=== PATIENT | male | born 1955 | race Caucasian/White ===

== ENCOUNTER 2021-07-04 06:11 | Day surgery (SDC) | payer OTHER ==
[~2021-07-04] VITALS: Ht 172.7 cm; Wt 78.9 kg
--- NOTE | ~2021-07-04 | O ---
[facility] [place] [address] OPERATIVE REPORT Name: FRANCISCO KITCHEN JR Room #: DEP [facility].#: [id number] Admission: 07/04/21 Attend Phys: Emigdio Tafoya MD Discharge: 07/04/21 Date of : 55 Report #: [id number] THIS REPORT FOR: cc: FAM - Family physician unknown FAM - Family physician unknown Emigdio Tafoya MD ~ DATE OF SERVICE: 07/04/2021 SERVICE: Orthopedics. FACILITY: [facility]. SURGEON: Emigdio Tafoya MD DISPUTE COORDINATOR: Elba Jang NP PREOPERATIVE DIAGNOSES: 1. Right elbow infected hardware. 2. Retained orthopedic implant, right elbow olecranon. 3. Status post open reduction internal fixation of right olecranon fracture with radial head replacement in the late . POSTOPERATIVE DIAGNOSES: 1. Right elbow infected hardware. 2. Retained orthopedic implant, right elbow olecranon. 3. Status post open reduction internal fixation of right olecranon fracture with radial head replacement in the late .. PROCEDURES: 1. Hardware removal, right olecranon. 2. Incision, irrigation and debridement down to bone, right elbow. COMPLICATIONS: None. DRAINS: None. SPECIMENS: 1. Tissue culture. 2. Exudate culture. FINDINGS: 1. Four of 7 screws removed in total, 3 head break off with the shaft portion retained within the bone. 2. No signs of deep abscess or necrotic tissue that would be suggestive of chronic osteomyelitis. [address] [place] [address] OPERATIVE REPORT Name: FRANCISCO KITCHEN JR Room #: DEP [facility] M..#: [id number] Admission: 07/04/21 Attend Phys: Emigdio Tafoya MD Discharge: 07/04/21 Date of : 55 Report #: [id number] HISTORY: The patient is a 65-year-old gentleman with a history of a fall resulting in a significant elbow injury in late . He underwent open reduction internal fixation and then had a second surgery as well. He did receive a radial head prosthesis along the way. About a year ago, he started having drainage from a chronic wound over the plate and presented to the office after failing oral antibiotics and routine wound care and he was indicated for hardware removal and debridement with antibiotic management. He was referred to Infectious Disease service and is here for surgery portion of the treatment today. Risks, benefits, alternatives and indications for surgery discussed with him in detail. Risks include but are not limited to pain, bleeding, infection, injuring nerves or blood vessels, persistent pain despite surgery, need for further surgery including revision and further bony work as well as complications related to anesthesia. Despite the risks, he wished to proceed. DESCRIPTION OF PROCEDURE: After right upper extremity was correctly identified in the preoperative holding area as the operative extremity, the patient was taken to the operating room where general anesthesia was induced without complication. He was padded appropriately as he was turned into the lateral decubitus position with right side up, left side down. Prophylactic antibiotics were held until we had taken the cultures. The arm was elevated and then the tourniquet was inflated. An Esmarch was not used. There was some superficial purulence from 2 poke holes in the old wound and the previous scar was incised in full length and exudative/purulent drainage was cultured with a culture swab at this point and sent for aerobic, anaerobic, fungal and AFB. We then proceeded with the dissection down to the level of the plate and used a rongeur to resect soft tissues including some soft tissue from underneath the plate area. This was sent for tissue culture as well. Then, each of the 7 screws were then sequentially removed. This was an old set of Synthes screws and one-third tubular plates with 2 of them stacked on top of each other. Four of the screws came out in whole, but three of them were still well fixed into the bone that the screws did not turn in and we had breakage of the head off of the shaft, but these all broke flush or deep to the level of the bone and there was no prominent metal. There was no deep purulence noted. An elevator was used to abrade the soft tissue and remove the proliferative tissue in this location. Rongeur was used to debride the bone as well and then we used a curette to curette all the screw holes. The elbow was then thoroughly irrigated and then the deep layer was closed with interrupted 0 PDS sutures in [id number] fashion. Tourniquet was let down. Hemostasis was achieved. He had a very good blood flow, so has good healing potential. The area in the wound that had the punctate drainage was excised sharply with a blade prior to closure and this incorporated both of the two points of drainage. The wound otherwise looked healthy and then the skin layer was closed with 2-0 Vicryl followed by a 3-0 diagonal mattress suture nylon stitch and a soft dressing was [facility] [address] [place] [address] OPERATIVE REPORT Name: FRANCISCO KITCHEN JR Room #: DEP [facility]#: [id number] Admission: 07/04/21 Attend Phys: Emidgio Tafoya MD Discharge: 07/04/21 Date of : 55 Report #: [id number] applied. The patient was awakened from anesthesia and taken to recovery room in stable condition. No complications. All counts were correct. By: [id number] Emigdio Tafoya MD /nt
[2021-07-04 07:30] VITALS: BP 139/83
[2021-07-04 10:34] VITALS: BP 139/83
--- NOTE | 2021-07-04 11:07 | NUR ---
VAT CONSULTED FOR PICC FOR HOME ABX POSTOP. CONFIRMED CONSENT AND ORDER. GRAZYNA BRACHIAL WAS WIDELY PATENT WITH USG, MEASURED 32%. SL POWER PICC TRIMMED TO 48CM INSERTED TO 0CM X1 STICK. PLACEMENT CONFIRMED WITH PEAKED P-WAVES ON 3CG. PICC RELEASED FOR IMMEDIATE USE PER PROTOCOL. WALLET CARD AND HOME CARE HANDOUT GIVEN TO PT'S SON. PT TOLERATED WELL
== END 2021-07-04 11:15 | disposition home or self-care (01) ==
LOC: OR 06:11 → TBA 06:12 → OR 11:15
PROVIDERS: ATTEND Orthopaedic Surgery Sports Medicine
DX: M25.521 Pain in right elbow (principal); T84.69XA Infection and inflammatory reaction due to internal fixation device of other site, initial encounter; F17.210 Nicotine dependence, cigarettes, uncomplicated; Z98.890 Other specified postprocedural states; Z79.899 Other long term (current) drug therapy; Z88.6 Allergy status to analgesic agent; Z20.822 Contact with and (suspected) exposure to COVID-19; Y83.8 Other surgical procedures as the cause of abnormal reaction of the patient, or of later complication, without mention of misadventure at the time of the procedure
CPT/HCPCS: 27000; 50010; 50101; 50386; 50403; 56524; 56525; 56527; 57178; 62110; 62900; 70005